=== PATIENT | female | born 2005 | race Caucasian/White ===

== ENCOUNTER 2023-11-07 16:51 | Observation (INO) | payer OTHER ==
[2023-11-07 17:41] LABS: HEMATOCRIT 33.1 % (35.0-50.0); HEMOGLOBIN 11.2 g/dL (12.0-18.0); MCH 28.7 (27-36); MCHC 33.9 g/dl (30-36); MCV 84.6 fl (81-99); RBC 3.91 M/ul (4.3-5.7); RDW 14.3 (10.5-15.0)
[2023-11-07] MEDS ORDERED: MAGNESIUM HYDROXIDE/AL HYDROX 30 ML CUP PO PRN (17:45)
[2023-11-07] MEDS ORDERED: CALCIUM CARBONATE 500 MG CHEW PO PRN (17:45)
[2023-11-07] MEDS ORDERED: OXYTOCIN/DEXTROSE 5% 20 UNITS/100 ML BAG IV SCH (17:45)
[2023-11-07 18:19] LABS: ABO O; RH POSITIVE
[2023-11-07 18:20] LABS: ANTIBODY SCREEN NEGATIVE
[2023-11-07 18:38] LABS: AMPHETAMINES, URINE NEGATIVE (NEGATIVE); BARBITURATES, URINE NEGATIVE (NEGATIVE); BENZODIAZEPINE, URINE NEGATIVE (NEGATIVE); BUPRENORPHINE, URINE NEGATIVE (NEGATIVE); CANNABINOID, URINE NEGATIVE (NEGATIVE); COCAINE, URINE NEGATIVE (NEGATIVE); ECSTASY, URINE NEGATIVE (NEGATIVE); FENTANYL, URINE NEGATIVE (NEGATIVE); METHADONE, URINE NEGATIVE (NEGATIVE); OPIATES, URINE NEGATIVE (NEGATIVE); OXYCODONE, URINE NEGATIVE (NEGATIVE); PHENCYCLIDINE, URINE NEGATIVE (NEGATIVE)
[2023-11-07] MEDS ORDERED: OXYTOCIN/0.9 % SODIUM CHLORIDE 500 ML IV SCH (22:00)
[2023-11-08 08:18] LABS: AMNISURE ROM TEST NEGATIVE
== END 2023-11-08 08:50 | disposition home or self-care (01) ==
LOC: FBCO 16:51 → FBC 17:10 → FBCO 17:10 → FBC 17:10
PROVIDERS: ADMIT Obstetrics & Gynecology; ATTEND Obstetrics & Gynecology
DX: O42.913 Preterm premature rupture of membranes, unspecified as to length of time between rupture and onset of labor, third trimester (principal); Z3A.36 36 weeks gestation of pregnancy; J45.909 Unspecified asthma, uncomplicated; O99.513 Diseases of the respiratory system complicating pregnancy, third trimester
CPT/HCPCS: 36415; 80307; 84112; 85027; 86850; 86900; 86901; 96374; G0378

== ENCOUNTER 2024-12-26 13:13 | Emergency (ER) | payer OTHER ==
[~2024-12-26] VITALS: Ht 182.9 cm; Wt 116.2 kg
[2024-12-26 22:13] LABS: BILIRUBIN, URINE NEGATIVE (negative); BLOOD/HGB, URINE NEGATIVE (Negative); KETONE, URINE SMALL (Negative); LEUK ESTERASE, URINE SMALL (negative); NITRITE, URINE NEGATIVE (negative); PH, URINE 5.5 (5-7)
[2024-12-26 22:13] LABS: BASOPHILS 0.6 % (0-2); EOSINOPHILS 3.5 % (0-6); HEMATOCRIT 37.6 % (35.0-50.0); HEMOGLOBIN 12.7 g/dL (12.0-18.0); LYMPHOCYTES 19.2 % (24-44); MCH 27.5 (27-36); MCHC 33.7 g/dl (30-36); MCV 81.7 fl (81-99); MONOCYTES 5.8 % (0-12); NEUTROPHILS 70.9 % (39-80); PLATELET COUNT 327 K/uL (140-440); RDW 15.8 (10.5-15.0)
[2024-12-26] MEDS ORDERED: LARIN FE 1.5-31 EACH PO (22:15)
[2024-12-26 22:18] LABS: CASTS, URINE NONE SEEN \\lpf; CRYSTALS, URINE NONE SEEN (0-1+); EPITHELIAL CELLS, URINE SQUAMOUS 4+ /lpf (0-1+); RED BLOOD CELLS, URINE 0-1 /hpf (0-5); WHITE BLOOD CELLS, URINE >50 /HPF (0-5)
[2024-12-26 22:21] LABS: BACTERIA, URINE 2+ /hpf (negative); COLLECTION TYPE, URINE CLEAN CATCH; REFLEX CULTURE, URINE No (No)
[2024-12-26 22:26] LABS: ABO O; RH POSITIVE
[2024-12-26 22:45] LABS: ANION GAP 12.5 (7-21); BUN/CREATININE RATIO 12.67 (6.0-28.6); CALCIUM 9.5 mg/dL (8.5-10.1); CREATININE, SERUM 0.71 mg/dL (0.55-1.02); POTASSIUM 3.5 mmol/L (3.5-5.1)
[2024-12-27] MEDS ORDERED: CEPHALEXIN MONOHYDRATE 500 MG CAP PO ONE (00:15)
[2024-12-27] MEDS ORDERED: CEPHALEXIN500 M1 PO (00:15)
[2024-12-27 00:32] VITALS: BP 129/77
== END 2024-12-27 00:32 | disposition home or self-care (01) ==
LOC: ED 13:13
PROVIDERS: Internal Medicine
DX: O20.9 Hemorrhage in early pregnancy, unspecified (principal); O23.41 Unspecified infection of urinary tract in pregnancy, first trimester; N39.0 Urinary tract infection, site not specified; Z3A.11 11 weeks gestation of pregnancy; Z87.891 Personal history of nicotine dependence; Z88.0 Allergy status to penicillin
CPT/HCPCS: 36415; 76801; 80048; 81001; 84702; 85025; 86900; 86901; 87077; 87088; 87186; 99284-25; A9270

== ENCOUNTER 2025-01-16 10:35 | Emergency (ER) | payer OTHER ==
[~2025-01-16] VITALS: Ht 182.9 cm; Wt 111.5 kg
[~2025-01-16 10:35] MED LIST: CEPHALEXIN500 M1 PO; LARIN FE 1.5-31 EACH PO
--- OUTSIDE RECORDS SUMMARY | 2025-01-16 10:43 | XMS ---
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 Mark VISIT COUNT (12 MO.) [address] TOTAL 3 NOTE: Visits indicate total known visits. ED/UCC VISIT TRACKING (12 MO.) 01/16/2025 10:36 [facility] [place] TYPE: Emergency COMPLAINT: - VOMITING 01/05/2025 08:[address] [facility] [place] TYPE: Emergency DIAGNOSES: - Allergy, unspecified, initial encounter - Anaphylactic shock, unspecified, initial encounter - Hypotension, unspecified - STUNG BY A WASP LISBETH 01/05/25 SOB 12/26/2024 13:14 [facility] [place] TYPE: Emergency COMPLAINT: - VAGINAL BLEEDING DIAGNOSES: - 11 weeks gestation of - Allergy status to penicillin - Hemorrhage in early , unspecified - Personal history of nicotine dependence - Unspecified infection of urinary tract in , first trimester - Urinary tract infection, site not specified INPATIENT VISIT TRACKING (12 MO.) No inpatient visits to display in this time frame [id number]
[2025-01-16] MEDS ORDERED: SODIUM CHLORIDE 0.9% 500 ML IV ONE (11:15)
[2025-01-16] MEDS ORDERED: SODIUM CHLORIDE 0.9% 2,000 ML IV PRN (11:30)
[2025-01-16] MEDS ORDERED: ondansetron HCL 4 MG/2 ML VIAL IV ONE (11:30)
[2025-01-16 11:35] LABS: BASOPHILS 0.1 % (0-2); EOSINOPHILS 0.1 % (0-6); HEMATOCRIT 39.2 % (35.0-50.0); HEMOGLOBIN 13.1 g/dL (12.0-18.0); LYMPHOCYTES 1.7 % (24-44); MCH 27.5 (27-36); MCHC 33.5 g/dl (30-36); MONOCYTES 2.3 % (0-12); NEUTROPHILS 95.8 % (39-80); PLATELET COUNT 294 K/uL (140-440); RBC 4.78 M/ul (4.3-5.7); RDW 15.5 (10.5-15.0)
[2025-01-16 11:49] LABS: ALBUMIN 3.1 g/dL (3.4-5.0); ALBUMIN/GLOBULIN RATIO 0.72 (1.1-2.4); ANION GAP 13.7 (7-21); BILIRUBIN, TOTAL 0.5 mg/dL (0.2-1.0); BUN/CREATININE RATIO 8.69 (6.0-28.6); CALCIUM 8.7 mg/dL (8.5-10.1); CREATININE, SERUM 0.69 mg/dL (0.55-1.02); MAGNESIUM 1.6 mg/dL (1.8-2.4); POTASSIUM 3.7 mmol/L (3.5-5.1); PROTEIN, TOTAL 7.4 g/dL (6.4-8.2)
[2025-01-16 12:05] LABS: BILIRUBIN, URINE NEGATIVE (negative); BLOOD/HGB, URINE SMALL (Negative); KETONE, URINE >=80 (Negative); LEUK ESTERASE, URINE NEGATIVE (negative); NITRITE, URINE NEGATIVE (negative); PH, URINE 6.5 (5-7)
[2025-01-16 12:14] LABS: BACTERIA, URINE 1+ /hpf (negative); CASTS, URINE NONE SEEN \\lpf; CRYSTALS, URINE NONE SEEN (0-1+); EPITHELIAL CELLS, URINE SQUAMOUS 4+ /lpf (0-1+)
[2025-01-16 12:15] LABS: COLLECTION TYPE, URINE CLEAN CATCH; REFLEX CULTURE, URINE No (No)
[2025-01-16] MEDS ORDERED: ONDANSETRON ODT8 MG PO (14:28)
[2025-01-16 14:58] VITALS: BP 101/58
== END 2025-01-16 14:59 | disposition home or self-care (01) ==
LOC: ED 10:35
PROVIDERS: Emergency Medicine
DX: O21.0 Mild hyperemesis gravidarum (principal); Z3A.13 13 weeks gestation of pregnancy; Z88.0 Allergy status to penicillin; Z87.891 Personal history of nicotine dependence; J45.909 Unspecified asthma, uncomplicated
CPT/HCPCS: 36415; 76815; 80053; 81001; 83735; 85025; 96361; 96374; 99284-25; J2405; J7030

== ENCOUNTER 2025-07-17 07:06 | Emergency (ER) | payer OTHER ==
[~2025-07-17] VITALS: Ht 182.9 cm; Wt 116.0 kg
[~2025-07-17 07:06] MED LIST changes: +ONDANSETRON ODT8 MG PO
[2025-07-17] MEDS ORDERED: VENTOLIN HFA18 GM INH (07:22)
[2025-07-17] MEDS ORDERED: QVAR REDIHALE10.6 G1 INH (07:23)
[2025-07-17] MEDS ORDERED: SODIUM CHLORIDE 0.9% 1,000 ML IV ONE (07:30)
[2025-07-17 07:37] LABS: BASOPHILS 0.3 % (0.1-1.2); EOSINOPHILS 1.8 % (0.7-5.8); LYMPHOCYTES 13.5 % (19.3-51.7); MCH 27.0 PG (25.6-32.2); MCHC 31.3 g/dL (32.2-35.5); MCV 86.4 fL (79.4-94.8); MONOCYTES 0.6 % (4.7-12.5); NEUTROPHILS 83.2 % (34.0-71.1); RBC 4.48 M/uL (3.93-5.22)
[2025-07-17 07:45] LABS: BLOOD/HGB, URINE MODERATE (Negative); KETONE, URINE NEGATIVE (Negative); LEUK ESTERASE, URINE MODERATE (negative); NITRITE, URINE NEGATIVE (negative)
[2025-07-17] MEDS ORDERED: IBUPROFEN 400 MG TAB PO ONE (07:45)
[2025-07-17] MEDS ORDERED: ACETAMINOPHEN 325 MG TAB PO ONE (07:45)
[2025-07-17 07:49] LABS: INR 0.99 (0.80-1.30); PROTIME 12.4 Sec (11.2-14.2)
[2025-07-17 07:53] LABS: ALT (SGPT) 16.0 U/L (14-59); AST (SGOT) 10.0 U/L (15-37); GLOMERULAR FILTRATION RATE,EST 108.0 mL/min (>60); PROTEIN, TOTAL 7.4 g/dL (6.4-8.2); UREA NITROGEN 14.0 mg/dL (7-18)
[2025-07-17 07:54] LABS: BACTERIA, URINE RARE /hpf (negative); CASTS, URINE NONE SEEN \\lpf; CRYSTALS, URINE NONE SEEN (0-1+); EPITHELIAL CELLS, URINE SQUAMOUS 1+ /lpf (0-1+); REFLEX CULTURE, URINE Yes (No)
[2025-07-17 08:02] LABS: LACTIC ACID, BLOOD 2.4 mmol/L (0.4-2.0)
[2025-07-17 08:32] LABS: INFLUENZA B NAA NEGATIVE (NEGATIVE); RESPIRATORY SYNCYTIAL VIR NAA NEGATIVE (NEGATIVE)
[2025-07-17] MEDS ORDERED: AMOX TR-K CLV1 EAC1 PO (10:26)
[2025-07-17 10:36] VITALS: BP 106/60
--- NOTE | 2025-07-17 13:29 | EKG ---
[facility] [address] [facility] [place] [address] Signed Sinus tachycardia Otherwise normal ECG No previous ECGs available Confirmed by Wagner Martin MD () on 07/17/2025 1:29:02 PM Electronically Signed By: WAGNER MARTIN MD 07/17/25 1329 PATIENT NAME: PHILLIP LOVELL PIEDAD Electrocardiogram DATE OF : [birth year] PHYSICIAN: WAGNER MARTIN MD REPORT #: [id number] REPORT IS CONFIDENTIAL AND NOT TO BE RELEASED WITHOUT AUTHORIZATION
== END 2025-07-17 10:37 | disposition home or self-care (01) ==
LOC: ED 07:06
PROVIDERS: Emergency Medicine
DX: O86.4 Pyrexia of unknown origin following delivery (principal); O86.20 Urinary tract infection following delivery, unspecified; O86.12 Endometritis following delivery; J45.909 Unspecified asthma, uncomplicated; Z88.0 Allergy status to penicillin; Z87.891 Personal history of nicotine dependence
CPT/HCPCS: 36415; 71045; 76856; 80053; 81001; 83605; 85025; 85610; 85730; 87040; 87088; 87186; 87502; 93005; 93010; 96365; 99284-25; A9270; J0696; U0002

== ENCOUNTER 2025-07-28 22:19 | Emergency (ER) | payer OTHER ==
[~2025-07-28] VITALS: Ht 175.3 cm; Wt 116.0 kg
[~2025-07-28 22:19] MED LIST changes: +AMOX TR-K CLV1 EAC1 PO; +QVAR REDIHALE10.6 G1 INH; +VENTOLIN HFA18 GM INH
--- OUTSIDE RECORDS SUMMARY | 2025-07-28 22:26 | XMS ---
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 EFlako VISIT COUNT (12 MO.) [address] [place] [address] TOTAL 5 NOTE: Visits indicate total known visits. ED/UCC VISIT TRACKING (12 MO.) 07/28/2025 22:20 [facility] TYPE: Emergency COMPLAINT: - POSS MED REACTION 07/17/2025 07:07 [facility] TYPE: Emergency COMPLAINT: - SHORTNESS OF BREATH DIAGNOSES: - Allergy status to penicillin - Endometritis following delivery - Other specified diseases and conditions complicating puerperium - Personal history of nicotine dependence - Pyrexia of unknown origin following delivery - Unspecified asthma, uncomplicated - Urinary tract infection following delivery, unspecified 01/16/2025 10:36 [facility] [place] TYPE: Emergency COMPLAINT: - VOMITING DIAGNOSES: - 13 weeks gestation of - Allergy status to penicillin - Mild hyperemesis gravidarum - Nausea with vomiting, unspecified - Personal history of nicotine dependence - Unspecified asthma, uncomplicated 01/05/2025 08:45 [facility] [place] TYPE: Emergency DIAGNOSES: - Allergy, unspecified, [...] not specified INPATIENT VISIT TRACKING (12 MO.) 07/06/2025 19:10 [facility] [place] TYPE: Women Services COMPLAINT: - Management of Labor and Delivery DIAGNOSES: - Management of Labor and Delivery [id number]
[2025-07-28 22:40] LABS: BASOPHILS 0.9 % (0.1-1.2); EOSINOPHILS 5.2 % (0.7-5.8); LYMPHOCYTES 25.6 % (19.3-51.7); MCH 26.8 PG (25.6-32.2); MCHC 31.4 g/dL (32.2-35.5); MCV 85.2 fL (79.4-94.8); MONOCYTES 5.7 % (4.7-12.5); NEUTROPHILS 61.9 % (34.0-71.1); RBC 4.52 M/uL (3.93-5.22)
[2025-07-28] MEDS ORDERED: KETOROLAC TROMETHAMINE 30 MG/ML VIAL IV ONE (22:45)
[2025-07-28 22:55] LABS: BLOOD/HGB, URINE NEGATIVE (Negative); KETONE, URINE NEGATIVE (Negative); LEUK ESTERASE, URINE NEGATIVE (negative); NITRITE, URINE NEGATIVE (negative)
[2025-07-28 23:01] LABS: ALT (SGPT) 21.0 U/L (14-59); AST (SGOT) 11.0 U/L (15-37); GLOMERULAR FILTRATION RATE,EST 87.0 mL/min (>60); PROTEIN, TOTAL 7.9 g/dL (6.4-8.2); UREA NITROGEN 11.0 mg/dL (7-18)
[2025-07-28 23:09] LABS: PROTEIN, RANDOM URINE <6 mg/dL (NOT ESTABLISHED)
[2025-07-28] MEDS ORDERED: PROCHLORPERAZINE EDISYLATE 10 MG/2 ML VIAL IV ONE (23:30)
[2025-07-28] MEDS ORDERED: LACTATED RINGER'S 1,000 ML IV ONE (23:30)
[2025-07-29 00:46] LABS: PROTEIN, RANDOM URINE <6 mg/dL (NOT ESTABLISHED)
[2025-07-29 02:55] VITALS: BP 119/63
== END 2025-07-29 02:55 | disposition home or self-care (01) ==
LOC: ED 22:19
PROVIDERS: Internal Medicine
DX: O99.355 Diseases of the nervous system complicating the puerperium (principal); G43.909 Migraine, unspecified, not intractable, without status migrainosus; Z87.891 Personal history of nicotine dependence; Z88.0 Allergy status to penicillin; Z79.51 Long term (current) use of inhaled steroids
CPT/HCPCS: 36415; 70450; 80053; 81003; 82570; 83735; 84156; 85025; 96374; 96375; 99284-25; J0780; J1200; J1885; J7121